=== PATIENT | male | born 1990 | race African-American/Black ===

== ENCOUNTER → 2019-09-11 | Outpatient (CLI) | payer OTHER ==
--- NOTE | 2019-09-11 13:22 | KCIC ---
Three-view right knee dated 09/11/2019. No comparison available. Clinical indication: Knee pain. Stiffness and swelling. FINDINGS: 3 views of right knee were performed standing. Bony alignment is anatomic. No displaced fracture. No apparent joint effusion or loose body. Minimal hypertrophic change of the lateral compartment. IMPRESSION: No acute radiographic abnormality. Electronically signed by: Steven Martins MD (09/11/2019 1:19 PM) LEANNE
== END | disposition home or self-care (01) ==
LOC: KCIC 12:49
PROVIDERS: ATTEND Physical Medicine & Rehabilitation
DX: M25.561 Pain in right knee (principal); M89.40 Other hypertrophic osteoarthropathy, unspecified site; M79.89 Other specified soft tissue disorders
CPT/HCPCS: 73562